=== PATIENT | female | born 1950 | race African-American/Black ===

== ENCOUNTER → 2018-04-04 | Day surgery (SDC) | payer MEDICARE, OTHER ==
[~2018-04-04] MED LIST: BACITRACIN INJ 50000 UNIT VIAL ONE; BUPIVACAINE 0.25% INJ 50ML VIAL ONE; LIDOCAINE 1% HCL (LOCAL ANESTH.) INJ 20ML MDV ONE; SUCCINYLCHOLINE CHLORIDE 20 MG/ML 10ML VIAL IV ONE
[2018-04-04 08:24] VITALS: BP 136/82
== END | disposition home or self-care (01) ==
LOC: SUR 05:44
PROVIDERS: ATTEND Orthopaedic Surgery
DX: M20.012 Mallet finger of left finger(s) (principal); S62.637A Displaced fracture of distal phalanx of left little finger, initial encounter for closed fracture; W19.XXXA Unspecified fall, initial encounter; Y93.89 Activity, other specified; Y92.89 Other specified places as the place of occurrence of the external cause; Y99.8 Other external cause status
CPT/HCPCS: 26756; 73140; 76000; J0330; J2001; J3490